=== PATIENT | female | born 1980 | race Caucasian/White ===

== ENCOUNTER 2016-04-20 01:26 | Emergency (ER) | payer OTHER ==
--- NOTE | 2016-04-20 01:52 | PDOC ---
History of Present Illness - General Chief Complaint: Headache Stated Complaint: PAIN,HEADACHE/VOMITING Time Seen by Provider: 04/20/16 01:42 History Source: Patient Exam Limitations: No Limitations - History of Present Illness Timing/Duration: reports: 1-3 hours Associated Symptoms: reports: nausea/vomiting. denies: fever/chills, loss of consciousness, numbness in legs/feet, slurred speech Past History - Travel Traveled outside of the country in the last 30 days: No Close contact w/someone who was outside of country & ill: No - Past Medical History Allergies/Adverse Reactions: Allergies Allergy/AdvReac Type Severity Reaction Status Date / Time sulfamethoxazole Allergy Swelling Verified 04/20/16 01:45 [From Bactrim] tramadol HCl [From Ultram] Allergy Difficulty Verified 04/20/16 01:45 Breathing trimethoprim [From Bactrim] Allergy Swelling Verified 04/20/16 01:45 Home Medications: Ambulatory Orders NK [No Known Home Medication] 01/07/16 Anemia: Yes Asthma: Yes Cancer: Yes (CERVICAL CA) COPD: Yes (sarcoid) Diabetes: No HTN: No - Surgical History Abdominal Surgery: Yes (HYSTERECTOMY, sbo) GI Surgery: Yes (SBO) - Reproductive History Uterine Fibroids: Yes (hysterectomy) Oophorectomy: No - Immunization History Immunization Up to Date: Yes - Psycho/Social/Smoking Cessation Hx Anxiety: No Suicidal Ideation: No Smoking Status: No Smoking History: Never smoked Have you smoked in the past 12 months: No Number of Cigarettes Smoked Daily: 0 Cigars Per Day: 0 Information on smoking cessation initiated: No Hx Alcohol Use: No Drug/Substance Use Hx: No Substance Use Type: None Hx Substance Use Treatment: No Review of Systems - Review of Systems Able to Perform ROS?: Yes Comments:: 04/20/16 01:50 CONSTITUTIONAL: Absent: fever, chills, diaphoresis, generalized weakness, malaise, loss of appetite HEENT: Absent: rhinorrhea, nasal congestion, throat pain, throat swelling, difficulty swallowing, mouth swelling, ear pain, eye pain, visual Changes CARDIOVASCULAR: Absent: chest pain, loss of consciousness, palpitations, irregular heart rate, peripheral edema RESPIRATORY: Absent: cough, shortness of breath, dyspnea with exertion, orthopnea, wheezing, stridor, hemoptysis GASTROINTESTINAL: Absent: abdominal pain, abdominal distension, nausea, vomiting, diarrhea, constipation, melena, hematochezia GENITOURINARY: Absent: dysuria, frequency, urgency, hesitancy, hematuria, flank pain, genital pain MUSCULOSKELETAL: Absent: myalgia, arthralgia, joint swelling SKIN: Absent: rash, itching, pallor HEMATOLOGIC/IMMUNOLOGIC: Absent: easy bleeding, easy bruising, lymphadenopathy, frequent infections ENDOCRINE: Absent: unexplained weight gain, unexplained weight loss, heat intolerance, cold intolerance NEUROLOGIC: +headache Absent: focal weakness or paresthesias, dizziness, unsteady gait, seizure, mental status changes, bladder or bowel incontinence PSYCHIATRIC: Absent: anxiety, depression, suicidal or homicidal ideation, hallucinations. Is the patient limited Macedonian proficient: No *Physical Exam - Vital Signs Last Vital Signs Temp Pulse Resp BP Pulse Ox 98.0 F 89 20 120/89 98 04/20/16 01:45 04/20/16 01:45 04/20/16 01:45 04/20/16 01:45 04/20/16 01:45 - Physical Exam Comments: 04/20/16 01:50 GENERAL: Well developed, well nourished. Awake and alert. No acute distress. HEENT: Normocephalic, atraumatic. PERRLA, EOMI. No conjunctival pallor. Sclera are non- icteric. Moist mucous membranes. Oropharynx is clear. NECK: Supple. Full ROM. No JVD. Carotid pulses 2+ and symmetric, without bruits. No thyromegaly. No lymphadenopathy. CARDIOVASCULAR: Regular rate and rhythm. No murmurs, rubs, or gallops. Distal pulses are 2+ and symmetric. PULMONARY: No evidence of respiratory distress. Lungs clear to auscultation bilaterally. No wheezing, rales or rhonchi. ABDOMINAL: Soft. Non-tender. Non-distended. No rebound or guarding. No organomegaly. Normoactive bowel sounds. MUSCULOSKELETAL Normal range of motion at all joints. No bony deformities or tenderness. No CVA tenderness. EXTREMITIES: No cyanosis. No clubbing. No edema. No calf tenderness. SKIN: Warm and dry. Normal capillary refill. No rashes. No jaundice. NEUROLOGICAL: Alert, awake, appropriate. Cranial nerves 2-12 intact. No deficits to light touch and temperature in face, upper extremities and lower extremities. No motor deficits in the in face, upper extremities and lower extremities. Normoreflexic in the upper and lower extremities. Normal speech. Toes are down- going bilaterally. Gait is normal without ataxia. PSYCHIATRIC: Cooperative. Good eye contact. Appropriate mood and affect. toe/heel/tandem intact ED Treatment Course - LABORATORY CBC & Chemistry Diagram: 04/20/16 02:01 04/20/16 01:59 - RADIOLOGY Radiograph Interpretation: 04/20/16 05:11 Spiral renal; neg Progress Note - Progress Note Progress Note: 35-year-old female presents to the emergency department complaining of a generalized headache with mid back pain 2 days with nausea but no vomiting, left flank pain. Patient denies any dizziness, lightheadedness, neck pains, chest pain, shortness of breath or abdominal discomfort, urinary symptoms: Frequency/urgency/hesitancy, hematuria. *DC/Admit/Observation/Transfer Diagnosis at time of Disposition: Back pain Qualifiers: Back pain location: low back pain Chronicity: unspecified Back pain laterality : left Sciatica presence: without sciatica Qualified Code(s): M54.5 - Low back pain Headache Qualifiers: Headache type: unspecified Headache chronicity pattern: unspecified pattern - Discharge Dispostion Disposition: HOME Condition at time of disposition: Stable Admit: No - Referrals Referrals: Santos Hu [Non Staff, Medical] - Clive Smith MD [Staff Physician] - - Patient Instructions Printed Discharge Instructions: DI for Headache, Low Back Pain Additional Instructions: Rest Increase fluid Tylenol as needed for pain Return to the ER for severe/persistent/worsening symptoms
[2016-04-20 01:53] VITALS: BP 120/89; PULSE 89; TEMP 98; BMI 31.0
--- NOTE | 2016-04-20 01:53 | PDOC ---
*Physical Exam - Vital Signs Last Vital Signs Temp Pulse Resp BP Pulse Ox 98.0 F 89 20 120/89 98 04/20/16 01:45 04/20/16 01:45 04/20/16 01:45 04/20/16 01:45 04/20/16 01:45 ED Treatment Course - LABORATORY CBC & Chemistry Diagram: 04/20/16 02:01 04/20/16 01:59 Medical Decision Making - Medical Decision Making 04/20/16 01:53 agree with care from PIOTR Colvin *DC/Admit/Observation/Transfer Diagnosis at time of Disposition: Back pain, Headache - Discharge Dispostion Disposition: HOME Condition at time of disposition: Stable - Referrals Referrals: Santos Hu [Non Staff, Medical] - Clive Smith MD [Staff Physician] - - Patient Instructions Printed Discharge Instructions: Low Back Pain, DI for Headache Additional Instructions: Rest Increase fluid Tylenol as needed for pain Return to the ER for severe/persistent/worsening symptoms
[2016-04-20] MEDS ORDERED: SODIUM CHLORIDE 1,000 ML IV STA (02:03)
[2016-04-20] MEDS ORDERED: METOCLOPRAMIDE HCL INJECTION 10 MG/2 ML VIAL IVPUSH ONE (02:03)
[2016-04-20] MEDS ORDERED: METOCLOPRAMIDE HCL INJECTION 10 MG/2 ML VIAL ONE (02:29)
[2016-04-20 02:32] LABS: BASOPHIL 0.7 % (0-2.0); EOSINOPHIL 1.4 % (0-4.5); MCH 29.1 pg (25.7-33.7); MEAN CELL VOLUME 85.7 fl (80-96); MEAN PLT VOLUME 8.7 fl (7.5-11.1); NEUTROPHILS 53.3 % (42.8-82.8); PLATELET COUNT 228 K/MM3 (134-434); RDW 13.2 % (11.6-15.6); WHITE BLOOD COUNT 7.7 K/mm3 (4.0-10.0)
[2016-04-20 02:53] LABS: URINE APPEARANCE CLEAR; URINE BILIRUBIN NEGATIVE (NEGATIVE); URINE COLOR LTYELLOW; URINE GLUCOSE (UA) NEGATIVE (NEGATIVE); URINE KETONE NEGATIVE (NEGATIVE); URINE LEUK ESTERASE NEGATIVE (NEGATIVE); URINE NITRITE NEGATIVE (NEGATIVE); URINE PROTEIN NEGATIVE (NEGATIVE); URINE UROBILINOGEN NEGATIVE E.U./dl (0.2-1.0)
[2016-04-20 02:58] LABS: URINE BLOOD 2+ (NEGATIVE)
[2016-04-20 03:17] LABS: URINE BACTERIA RARE /hpf (NONE SEEN); URINE MUCUS RARE; URINE RBC 2 /hpf (0-3); URINE WBC 2 /hpf (3-5)
[2016-04-20 03:39] LABS: ALBUMIN 3.7 g/dl (3.4-5.0); ALK PHOS 87 U/L (45-117); ANION GAP 12 (8-16); BILIRUBIN,TOTAL 0.5 mg/dL (0.2-1.0); CALCIUM 8.9 mg/dL (8.5-10.1); CO2 25 mmol/L (21-32); CREATININE 0.7 mg/dL (0.55-1.02); GLUCOSE,RANDOM 94 mg/dL (74-106); SGOT/AST 28 U/L (15-37); SGPT/ALT 50 U/L (12-78); TOT PROT 6.9 g/dl (6.4-8.2)
== END 2016-04-20 05:36 | disposition home or self-care (01) ==
LOC: JER 01:26
PROC: 3E033GC Introduction of Other Therapeutic Substance into Peripheral Vein, Percutaneous Approach (ICD-10-PCS; principal; 2016-04-20)
DX: R51 Headache (principal)
CPT/HCPCS: 36415; 74176; 80053; 81003; 81015; 84703; 85025; 96374; 96375; 99283-25

== ENCOUNTER 2016-07-02 14:58 | Emergency (ER) | payer OTHER ==
[2016-07-02 15:15] VITALS: BP 118/73; PULSE 84; TEMP 97.9; BMI 29.9
--- NOTE | 2016-07-02 15:36 | PDOC ---
History of Present Illness - General Chief Complaint: Hematuria Stated Complaint: STOMACH PAIN/URINATING BLOOD Time Seen by Provider: 07/02/16 15:29 History Source: Patient Exam Limitations: No Limitations - History of Present Illness Initial Comments: 07/02/16 15:49 Pt. is a 36 y/o female with PMH of hysterectomy, who presents to the ED complaining of lower abdominal pain and urinating blood. Pt. states her pain started late last night and when she woke up this morning, she noticed blood on the toilet paper after wiping. Admits to frequency. Denies fevers, chills, nausea, vomiting, flank pain, and dysuria. Past History - Travel Traveled outside of the country in the last 30 days: No Close contact w/someone who was outside of country & ill: No - Past Medical History Allergies/Adverse Reactions: Allergies Allergy/AdvReac Type Severity Reaction Status Date / Time sulfamethoxazole Allergy Swelling Verified 07/02/16 15:13 [From Bactrim] tramadol HCl [From Ultram] Allergy Difficulty Verified 07/02/16 15:13 Breathing trimethoprim [From Bactrim] Allergy Swelling Verified 07/02/16 15:13 Home Medications: Ambulatory Orders Cephalexin Monohydrate [Keflex -] 500 mg PO BID #13 capsule 07/02/16 Anemia: Yes Asthma: Yes Cancer: Yes (CERVICAL CA) COPD: Yes (sarcoid) Diabetes: No HTN: No - Surgical History Abdominal Surgery: Yes (HYSTERECTOMY, sbo) GI Surgery: Yes (SBO) - Reproductive History Uterine Fibroids: Yes (hysterectomy) Oophorectomy: No - Immunization History Immunization Up to Date: Yes - Psycho/Social/Smoking Cessation Hx Anxiety: No Suicidal Ideation: No Smoking Status: No Smoking History: Never smoked Have you smoked in the past 12 months: No Number of Cigarettes Smoked Daily: 0 Cigars Per Day: 0 Information on smoking cessation initiated: No Hx Alcohol Use: No Drug/Substance Use Hx: No Substance Use Type: None Hx Substance Use Treatment: No Review of Systems - Review of Systems Constitutional: No: Chills, Fever, Weakness ABD/GI: No: Diarrhea, Nausea, Vomiting : Yes: Frequency, Hematuria, Pain. No: Burning, Dysuria, Flank Pain, Incontinence Integumentary: No: Erythema, Rash *Physical Exam - Vital Signs Last Vital Signs Temp Pulse Resp BP Pulse Ox 97.9 F 84 18 118/73 100 07/02/16 15:13 07/02/16 15:13 07/02/16 15:13 07/02/16 15:13 07/02/16 15:13 - Physical Exam General Appearance: Yes: Nourished, Appropriately Dressed. No: Apparent Distress Respiratory/Chest: positive: Lungs Clear, Normal Breath Sounds. negative: Respiratory Distress, Accessory Muscle Use, Rhonchi, Stridor, Wheezing Cardiovascular: positive: Regular Rhythm, Regular Rate, S1, S2 (present ) Gastrointestinal/Abdominal: positive: Normal Bowel Sounds, Tender (Suprapubic tenderness), Flat, Soft, Other ((-) rovsings, obturator and psoas sign.). negative: Organomegaly, Guarding, Rebound Medical Decision Making - Medical Decision Making 07/02/16 15:37 Pt. presents with UTI symptoms. Pylonephritis less likely as pt. is afebrile with no flank pain. Will order UA, , and UC testing at this time. Will give Tylenol for pain. 07/02/16 16:32 Urine is positive for leukocytes, blood and WBC's. Will treat at this time with Keflex. First dose of keflex given in the ED. Discharge pt. home at this time. Pt. given return protocol for back pain, or new fevers. Pt. understands discharge instructions and all questions were answered at this time. *DC/Admit/Observation/Transfer Diagnosis at time of Disposition: UTI (urinary tract infection) Qualifiers: Urinary tract infection type: acute cystitis Hematuria presence: with hematuria Qualified Code(s): N30.01 - Acute cystitis with hematuria - Discharge Dispostion Admit: No - Prescriptions Prescriptions: Cephalexin Monohydrate [Keflex -] 500 mg PO BID #13 capsule - Patient Instructions Printed Discharge Instructions: DI for Urinary Tract Infection (UTI) Additional Instructions: You have a urinary tract infection. Take your antibiotics as prescribed. Take all of the pills prescribed even if you are feeling better. Drink 8-10 glasses of water daily while taking the antibiotics. It is normal to have to use the restroom more frequently because of the infection. Follow up with you primary care doctor in one week. Return to the ED if you have fevers, chills, new back pain, if your symptoms do not resolve within one week, or if there are any changes in your symptoms.
[2016-07-02 15:57] LABS: URINE APPEARANCE SLCLOUDY; URINE BILIRUBIN NEGATIVE (NEGATIVE); URINE BLOOD 3+ (NEGATIVE); URINE COLOR LTYELLOW; URINE GLUCOSE (UA) NEGATIVE (NEGATIVE); URINE KETONE NEGATIVE (NEGATIVE); URINE LEUK ESTERASE 3+ (NEGATIVE); URINE NITRITE NEGATIVE (NEGATIVE); URINE PROTEIN NEGATIVE (NEGATIVE); URINE UROBILINOGEN NEGATIVE E.U./dl (0.2-1.0)
[2016-07-02 16:03] LABS: URINE BACTERIA MODERATE /hpf (NONE SEEN); URINE MUCUS RARE; URINE RBC 3 /hpf (0-3); URINE WBC 147 /hpf (3-5)
[2016-07-02] MEDS ORDERED: ACETAMINOPHEN 325 MG TABLET (FP) PO ONE (16:17)
[2016-07-02] MEDS ORDERED: ACETAMINOPHEN 325 MG TABLET (FP) ONE (16:20)
[2016-07-02] MEDS ORDERED: CEPHALEXIN MONOHYDRATE 500 MG CAPSULE (UD) PO ONE (16:26)
[2016-07-02] MEDS ORDERED: CEPHALEXIN MONOHYDRATE 500 MG CAPSULE (UD) ONE (16:29)
== END 2016-07-02 16:59 | disposition home or self-care (01) ==
LOC: JERFT 14:58
DX: N30.01 Acute cystitis with hematuria (principal)
CPT/HCPCS: 81003; 81015; 84703; 87086; 87186; 99281-25

== ENCOUNTER 2017-06-06 01:55 | Emergency (ER) | payer OTHER ==
[2017-06-06 02:20] VITALS: BP 113/78; PULSE 73; TEMP 98.1
--- NOTE | 2017-06-06 02:35 | PDOC ---
Attending Attestation - Resident Resident Name: Dorcas Lindsay - ED Attending Attestation I have performed the following: I have examined & evaluated the patient, The case was reviewed & discussed with the resident, I agree w/resident's findings & plan, Exceptions are as noted - HPI HPI: 06/06/17 02:38 37y F hx of sarcoid (no chronic meds), cervical ca, asthma, presents with complaint of palpitations during a 'panic attack' started feelig palpitations when she was in bed associated with chest tightness, nausea, lightheadedness, sob, lasting approx 20 minutes. She called EMS and while still symptmoatic with normal vitals, she was originally sent to [facility] but eloped and came here. pt sates she if eeling better here and is asypmtmoatic. No prior thyroid history. GENERAL: The patient is awake, alert, and fully oriented, Nontoxic - in no acute distress. HEAD: Normocephalic, atraumatic. EYES: extraocular movements intact, sclera anicteric, conjunctiva clear. ENT: Normal voice, Moist mucous membranes. NECK: Normal range of motion, supple LUNGS: Breath sounds equal, clear to auscultation bilaterally. No wheezes, no rhonchi, no rales. HEART: Regular rate and rhythm, normal S1 and S2 without murmur, rub or gallop. ABDOMEN: Soft, nontender, normoactive bowel sounds. No guarding, no rebound. No CVA tenderness EXTREMITIES: Normal range of motion, no edema. No calf tenderness NEUROLOGICAL: No facial assymetry, Normal speech, PSYCH: Normal mood, normal affect. SKIN: Warm, Dry, normal turgor, suspect anxiety/panic attack that resolved ekg is NSR with RBBB will ck labs to r/o anemia, metabolic derangements, thyroid dysfunction 06/06/17 03:48 labs unremarkbl ept feeling improved at vt will have pt fu with pMD and psych (Was given referral by PMD at [facility]) I discussed the physical exam findings, ancillary test results and final diagnoses with the patient. I answered all of the patient's questions. The patient was satisfied with the care received and felt comfortable with the discharge plan and treatment plan. The patient will call their primary care physician within 24 hours to arrange follow-up and will return to the Emergency Department with any new, persistent or worsening symptoms. - Physicial Exam PE: 06/08/17 17:13 see above - Medical Decision Making 06/08/17 17:13 see above Heart Score/ECG Review - ECG Impressions Comment:: 06/06/17 02:34 Twelve-lead EKG was performed and reviewed by me. There is normal sinus rhythm with a normal rate. rate of 67 RBBB
--- NOTE | 2017-06-06 02:35 | PDOC ---
History of Present Illness - General Chief Complaint: Palpitations Stated Complaint: PALPATATIONS Time Seen by Provider: 06/06/17 02:18 - History of Present Illness Initial Comments: 06/06/17 02:31 Patient is a 37 year old female with PMH of cervical cancer (s/p hysterectomy in 2009), sarcoidosis, asthma (no hospitalizations, no intubations) presents to the ED this morning following an episode of palpitations during a self- described panic attack. Patient notes she was laying in bed at approximately 10 p.m. when she felt her heart beating rapidly and the need to be outdoors. Patient ran outside and patient's partner called 911. Endorses subjective dyspnea denies any chest pain, nausea, diaphoresis. Notes life stressors including recent of her mother and her's partner's father. Further notes h/o of poor sleep. States she has a h/o similar presentations over the last year, however no formal medical evaluation. Allergy: Bactrim, Tramadol Surgical: hysterectomy (2009) Social: denies nicotine, denies recreational drugs Past History - Past Medical History Allergies/Adverse Reactions: Allergies Allergy/AdvReac Type Severity Reaction Status Date / Time sulfamethoxazole Allergy Swelling Verified 06/06/17 04:45 [From Bactrim] tramadol HCl [From Ultram] Allergy Difficulty Verified 06/06/17 04:45 Breathing trimethoprim [From Bactrim] Allergy Swelling Verified 06/06/17 04:45 Home Medications: Ambulatory Orders Alprazolam [Xanax] 0.25 mg PO Q12H PRN #4 tablet MDD 2 06/06/17 Anemia: Yes Asthma: Yes Cancer: Yes (CERVICAL CA) COPD: Yes (sarcoid) Diabetes: No HTN: No - Surgical History Abdominal Surgery: Yes (HYSTERECTOMY, sbo) GI Surgery: Yes (SBO) - Reproductive History Uterine Fibroids: Yes (hysterectomy) Oophorectomy: No - Immunization History Immunization Up to Date: Yes - Suicide/Smoking/Psychosocial Hx Smoking Status: No Smoking History: Never smoked Have you smoked in the past 12 months: No Number of Cigarettes Smoked Daily: 0 Cigars Per Day: 0 Information on smoking cessation initiated: No Hx Alcohol Use: No Drug/Substance Use Hx: No Substance Use Type: None Hx Substance Use Treatment: No Review of Systems - Review of Systems Constitutional: No: Chills, Fever HEENTM: No: Recent change in vision Respiratory: Yes: Shortness of Breath. No: Cough Cardiac (ROS): Yes: Palpitations. No: Chest Pain, Lightheadedness, Syncope ABD/GI: No: Constipated, Diarrhea, Nausea, Vomiting : No: Burning, Dysuria *Physical Exam - Vital Signs Last Vital Signs Temp Pulse Resp BP Pulse Ox 98.1 F 73 20 113/78 100 06/06/17 02:18 06/06/17 02:18 06/06/17 02:18 06/06/17 02:18 06/06/17 02:18 - Physical Exam General Appearance: Yes: Nourished, Appropriately Dressed HEENT: positive: EOMI Neck: positive: Trachea midline, Supple Respiratory/Chest: positive: Lungs Clear Cardiovascular: positive: Regular Rate, S1, S2 Gastrointestinal/Abdominal: positive: Normal Bowel Sounds, Soft Musculoskeletal: negative: CVA Tenderness (R), CVA Tenderness (L) Extremity: positive: Normal Capillary Refill, Normal Inspection Integumentary: positive: Normal Color, Dry, Warm ED Treatment Course - LABORATORY CBC & Chemistry Diagram: 06/06/17 02:50 06/06/17 02:50 Medical Decision Making - Medical Decision Making 06/06/17 02:58 37 year old female presents with resolved palpitations. VS unremarkable, asymptomatic @ presentation. Frontal diagnosis: Anemia, Electrolyte Derangement , (less likely), Panic Attack. Will obtain basic labs + serum . Reassess. 06/06/17 03:00 ECG shows RBB, HR 92 c/w ECG dated 07/09/14. negative. 06/06/17 03:41 TSH normal, no anemia, no electrolyte derangements. At this time patient completely asymptomatic. Will give copy of labs, return precaution and discharge home with counseling to keep previously scheduled PMD follow-up. I discussed the physical exam findings, ancillary test results and final diagnoses with the patient. I answered all of the patient's questions. The patient was satisfied with the care received and felt comfortable with the discharge plan and treatment plan. The patient will return to the Emergency Department with any new, persistent or worsening symptoms. *DC/Admit/Observation/Transfer Diagnosis at time of Disposition: Palpitations - Discharge Dispostion Disposition: HOME Condition at time of disposition: Good Admit: No - Referrals - Patient Instructions Printed Discharge Instructions: Anxiety and Panic Attacks (Alternative Therapy) , DI for Anxiety -- Adult Additional Instructions: A copy of your labs has been provided to you. Please take these to your primary care appointment. Return to the Emergency Department for any new/ worsening/concerning symptoms. - Post Discharge Activity
[2017-06-06 02:59] LABS: BASO % 0.7 % (0-2.0); EOS % 4.3 % (0-4.5); HEMOGLOBIN 12.5 GM/dL (10.7-15.3); LYMPH % 30.6 % (8-40); MCH 30.2 pg (25.7-33.7); MCHC 34.7 g/dl (32.0-36.0); MEAN PLT VOLUME 8.7 fl (7.5-11.1); MONO % 9.4 % (3.8-10.2); PLATELET COUNT 249 K/MM3 (134-434); RBC 4.14 M/mm3 (3.60-5.2); RDW 12.9 % (11.6-15.6); WHITE BLOOD COUNT 7.9 K/mm3 (4.0-10.0)
[2017-06-06 03:25] LABS: ALBUMIN 3.4 g/dl (3.4-5.0); ALK PHOS 82 U/L (45-117); ANION GAP 9 (8-16); BILIRUBIN,TOTAL 0.3 mg/dL (0.2-1.0); BLOOD UREA NITROGEN 13 mg/dL (7-18); CALCIUM 8.7 mg/dL (8.5-10.1); CHLORIDE 109 mmol/L (98-107); CO2 25 mmol/L (21-32); CREATININE 0.6 mg/dL (0.55-1.02); GLUCOSE,RANDOM 98 mg/dL (74-106); POTASSIUM 3.5 mmol/L (3.5-5.1); SGOT/AST 16 U/L (15-37); SGPT/ALT 26 U/L (12-78); SODIUM 143 mmol/L (136-145); TOT PROT 6.5 g/dl (6.4-8.2)
--- NOTE | 2017-06-09 10:00 | EKG ---
Test Reason : Blood Pressure : / mmHG Vent. Rate : 067 BPM Atrial Rate : 067 BPM P-R Int : 150 ms QRS Dur : 140 ms QT Int : 438 ms P-R-T Axes : 060 042 018 degrees QTc Int : 462 ms NORMAL SINUS RHYTHM RIGHT BUNDLE BRANCH BLOCK ABNORMAL ECG WHEN COMPARED WITH ECG OF 09-JUL-2014 15:52, NO SIGNIFICANT CHANGE WAS FOUND Confirmed by EDIL JOHN MD ([id number]) on 06/09/2017 10:00:13 AM Referred By: Confirmed By:EDIL JOHN MD
== END 2017-06-06 03:52 | disposition home or self-care (01) ==
LOC: JER 01:55
DX: R00.2 Palpitations (principal)
CPT/HCPCS: 36415; 80053; 84443; 84703; 85025; 93005; 93010; 99281-25; 99283-25

== ENCOUNTER 2017-06-06 04:13 | Emergency (ER) | payer OTHER ==
[2017-06-06] MEDS ORDERED: ALPRAZolam 0.25 MG TABLET PO ONE (04:23)
--- NOTE | 2017-06-06 04:23 | PDOC ---
History of Present Illness - General Stated Complaint: ANXIETY ATTACK Time Seen by Provider: 06/06/17 04:19 History Source: Patient Exam Limitations: No Limitations - History of Present Illness Initial Comments: 06/06/17 04:29 37y F discharged ~10 minutes ago for evaluation of palpitations and suspected panic attack, was feeling fine at discharge but in the cab started feeling sob, lighhteaded and palpitations. no associted cp, abd pain, n/v (see earlier chart for complete visit details) Past History - Past Medical History Allergies/Adverse Reactions: Allergies Allergy/AdvReac Type Severity Reaction Status Date / Time sulfamethoxazole Allergy Swelling Verified 06/06/17 04:45 [From Bactrim] tramadol HCl [From Ultram] Allergy Difficulty Verified 06/06/17 04:45 Breathing trimethoprim [From Bactrim] Allergy Swelling Verified 06/06/17 04:45 Home Medications: Ambulatory Orders Alprazolam [Xanax] 0.25 mg PO Q12H PRN #4 tablet MDD 2 06/06/17 Anemia: Yes Asthma: Yes Cancer: Yes (CERVICAL CA) COPD: Yes (sarcoid) Diabetes: No HTN: No - Surgical History Abdominal Surgery: Yes (HYSTERECTOMY, sbo) GI Surgery: Yes (SBO) - Reproductive History Uterine Fibroids: Yes (hysterectomy) Oophorectomy: No - Immunization History Immunization Up to Date: Yes - Suicide/Smoking/Psychosocial Hx Smoking Status: No Smoking History: Never smoked Have you smoked in the past 12 months: No Number of Cigarettes Smoked Daily: 0 Cigars Per Day: 0 Hx Alcohol Use: No Drug/Substance Use Hx: No Substance Use Type: None Hx Substance Use Treatment: No Review of Systems - Review of Systems Comments:: 06/06/17 04:36 see above *Physical Exam - Physical Exam Comments: 06/06/17 04:36 GENERAL: The patient is awake, alert, and oriented, anxious appearing HEAD: Normocephalic, atraumatic. LUNGS: Breath sounds equal, clear to auscultation bilaterally. No wheezes, no rhonchi, no rales. HEART: Regular rate and rhythm, normal S1 and S2 without murmur, rub or gallop. NEUROLOGICAL: No facial assymetry, Normal speech, PSYCH: anxious appearing SKIN: Warm, Dry, normal turgor, Medical Decision Making - Medical Decision Making 06/06/17 04:37 pt had neg workup an hr ago suspect anxiety attack on the way home will give her some xanax and reassess 06/06/17 06:27 pt feeling imroved full resolution of her symptoms will dc with pmd fu return precautions were dsicussed pt was given psych fu by her PMD she will give psych a call for follow up I discussed the physical exam findings, ancillary test results and final diagnoses with the patient. I answered all of the patient's questions. The patient was satisfied with the care received and felt comfortable with the discharge plan and treatment plan. The patient will call their primary care physician within 24 hours to arrange follow-up and will return to the Emergency Department with any new, persistent or worsening symptoms. *DC/Admit/Observation/Transfer Diagnosis at time of Disposition: Anxiety attack - Discharge Dispostion Disposition: HOME Condition at time of disposition: Improved Admit: No - Referrals Referrals: Wil Brown MD [Staff Physician] - - Patient Instructions Printed Discharge Instructions: DI for Anxiety -- Adult Additional Instructions: Return to the emergency department immediately with ANY new, persistent or worsening symptoms. You MUST call and follow up with your doctor and a psychiatrist this week for further evaluation of your symptoms. Results were discussed with you. Please make sure your doctor reviews the results of your emergency evaluation. - Post Discharge Activity
[2017-06-06 04:47] VITALS: BP 118/84; PULSE 68; TEMP 98.3; BMI 29.9
[2017-06-06] MEDS ORDERED: ALPRAZolam 0.25 MG TABLET ONE (04:50)
== END 2017-06-06 06:45 | disposition home or self-care (01) ==
LOC: JER 04:13
DX: F41.0 Panic disorder [episodic paroxysmal anxiety] (principal); F41.9 Anxiety disorder, unspecified; J45.909 Unspecified asthma, uncomplicated; J44.9 Chronic obstructive pulmonary disease, unspecified; Z86.2 Personal history of diseases of the blood and blood-forming organs and certain disorders involving the immune mechanism
CPT/HCPCS: 99283-25

== ENCOUNTER 2018-03-22 12:17 | Emergency (ER) | payer OTHER ==
[2018-03-22 12:24] VITALS: BP 111/72; PULSE 90; TEMP 98.2; BMI 28.3
--- NOTE | 2018-03-22 13:53 | PDOC ---
History of Present Illness - General Chief Complaint: Bite Stated Complaint: ALLERGIC REACTION Time Seen by Provider: 03/22/18 13:19 History Source: Patient - History of Present Illness Initial Comments: 03/22/18 13:48 37-year-old female reports that she was bit by an insect last night to the left elbow and forearm area and right middle finger. Patient reports increased redness and swelling to the left elbow and reports pruritus. Denies fevers/ chills Past History - Past Medical History Allergies/Adverse Reactions: Allergies Allergy/AdvReac Type Severity Reaction Status Date / Time sulfamethoxazole Allergy Swelling Verified 03/22/18 12:21 [From Bactrim] tramadol HCl [From Ultram] Allergy Difficulty Verified 03/22/18 12:21 Breathing trimethoprim [From Bactrim] Allergy Swelling Verified 03/22/18 12:21 Home Medications: Ambulatory Orders Alprazolam [Xanax] 0.25 mg PO Q12H #4 tablet MDD 2 06/06/17 Acyclovir [Zovirax -] 800 mg PO DAILY #35 tablet 02/03/18 Clindamycin [Cleocin -] 150 mg PO Q6H #28 capsule 03/22/18 Anemia: Yes Asthma: Yes Cancer: Yes (CERVICAL CA) COPD: Yes (sarcoid) Diabetes: No HTN: No - Surgical History Abdominal Surgery: Yes (HYSTERECTOMY, sbo) GI Surgery: Yes (SBO) - Reproductive History Uterine Fibroids: Yes (hysterectomy) Oophorectomy: No - Immunization History Immunization Up to Date: Yes - Suicide/Smoking/Psychosocial Hx Smoking Status: No Smoking History: Never smoked Have you smoked in the past 12 months: No Number of Cigarettes Smoked Daily: 0 Cigars Per Day: 0 Information on smoking cessation initiated: No Hx Alcohol Use: No Drug/Substance Use Hx: No Substance Use Type: None Hx Substance Use Treatment: No Review of Systems - Review of Systems Able to Perform ROS?: Yes Is the patient limited Maori proficient: No Constitutional: No: Symptoms Reported, See HPI, Chills, Diaphoresis, Fever, Loss of Appetite, Malaise, Night Sweats, Weakness, Weight Stable, Unintentional Wgt. Loss, Unexplained wgt Loss, Other Integumentary: Yes: Other (bite). No: Symptoms Reported, See HPI, Bruising, Change in Color, Change in Hair/Nails, Dryness, Erythema, Flushing, Lesions, Lumps, Pallor, Pruritus, Rash, Sweating *Physical Exam - Vital Signs Last Vital Signs Temp Pulse Resp BP Pulse Ox 98.2 F 90 16 111/72 100 03/22/18 12:22 03/22/18 12:22 03/22/18 12:22 03/22/18 12:22 03/22/18 12:22 - Physical Exam General Appearance: Yes: Appropriately Dressed Respiratory/Chest: positive: Lungs Clear, Normal Breath Sounds Extremity: positive: Normal Capillary Refill, Erythema (left forearm / elbow. no streaking. right 3 rd digit with erythema), Inflammation (no streaking), Other Integumentary: positive: Normal Color, Dry, Warm Neurologic: positive: Fully Oriented, Alert, Normal Mood/Affect Moderate Sedation - Procedure Monitoring Vital Signs: Procedure Monitoring Vital Signs Temperature 98.2 F 03/22/18 12:22 Pulse Rate 90 03/22/18 12:22 Respiratory Rate 16 03/22/18 12:22 Blood Pressure 111/72 03/22/18 12:22 O2 Sat by Pulse Oximetry (%) 100 03/22/18 12:22 Progress Note - Progress Note Progress Note: A: insect bite with early cellulitis P: clindamycin. 2 days return to PCP or er for a wound check. *DC/Admit/Observation/Transfer Diagnosis at time of Disposition: Cellulitis of forearm, left - Discharge Dispostion Disposition: HOME - Prescriptions Prescriptions: Clindamycin [Cleocin -] 150 mg PO Q6H #28 capsule - Referrals - Patient Instructions Printed Discharge Instructions: How to Care for an Insect Bite or Sting Additional Instructions: apply warm to the area take clindamycin as ordered follow up with your doctor in 2 days for a wound check. Additional Instructions: * Please call your personal physician to report your Emergency Department visit and to report your progress, if any. * If there is no improvement in symptoms in 2 days call your physician. * Return to the Emergency Department for any worsening symptoms. - Post Discharge Activity
== END 2018-03-22 14:02 | disposition home or self-care (01) ==
LOC: JERFT 12:17
DX: S50.862A Insect bite (nonvenomous) of left forearm, initial encounter (principal); L03.114 Cellulitis of left upper limb; W57.XXXA Bitten or stung by nonvenomous insect and other nonvenomous arthropods, initial encounter; Y93.89 Activity, other specified; Y92.89 Other specified places as the place of occurrence of the external cause; Y99.8 Other external cause status
CPT/HCPCS: 99281-25

== ENCOUNTER 2018-07-12 09:04 | Emergency (ER) | payer OTHER | END 2018-07-12 12:09 | disposition home or self-care (01) | LOC: JERFT 09:04 ==

== ENCOUNTER 2018-10-15 17:40 | Emergency (ER) | payer OTHER ==
[2018-10-15] MEDS ORDERED: ASPIRIN 81 MG CHEWABLE TABLETS PO ONE ×2 (18:04→22:51)
--- NOTE | 2018-10-15 18:05 | PDOC ---
Rapid Medical Evaluation Chief Complaint: Chest Pain Time Seen by Provider: 10/15/18 18:03 Medical Evaluation: Allergies Allergy/AdvReac Type Severity Reaction Status Date / Time sulfamethoxazole Allergy Swelling Verified 10/15/18 18:03 [From Bactrim] tramadol HCl [From Ultram] Allergy Difficulty Verified 10/15/18 18:03 Breathing trimethoprim [From Bactrim] Allergy Swelling Verified 10/15/18 18:03 10/15/18 18:03 HPI:Chest tightness and light headedness since yesterday PE: No gross deficits ORDERS:Cardiac work up Discharge Disposition - Diagnosis Chest tightness - Referrals - Patient Instructions - Post Discharge Activity
[2018-10-15 18:06] VITALS: TEMP 98.5; BMI 28.5
--- NOTE | 2018-10-15 18:40 | PDOC ---
History of Present Illness - General Chief Complaint: Chest Pain Stated Complaint: CHEST PAIN Time Seen by Provider: 10/15/18 18:03 - History of Present Illness Initial Comments: 10/15/18 19:48 38 y/o/f with PMHx of Sarcoidosis and anxiety here for chest pain/tightness since last night. She took 0.25mg of Xanax last night thinking the chest pain was due to her anxiety but it did not improve. She describes the pain as pressure on her chest. She had difficulty sleeping and still had chest tightness when she woke up. She also complains of intermittent pain that radiates to her left arm and up her neck. She also complains of weakness in her left side since she woke up this morning. She also complains that the vision in her left eye is intermittently blurry. She has felt nauseous today but did not vomit or have diarrhea today. She has not had any palpitations, sweating, shortness of breath, abd pain, fever, or other symptoms. Medical Hx: sarcoidosis diagnosed in 2010, anxiety Medications: Buspar 10mg BID, Xanax 0.25mg PRN, Prednisone - only during sarcoid flare Surgery: Left Knee surgery 2018, Hysterectomy 2009 Past History - Past Medical History Allergies/Adverse Reactions: Allergies Allergy/AdvReac Type Severity Reaction Status Date / Time sulfamethoxazole Allergy Swelling Verified 10/15/18 18:03 [From Bactrim] tramadol HCl [From Ultram] Allergy Difficulty Verified 10/15/18 18:03 Breathing trimethoprim [From Bactrim] Allergy Swelling Verified 10/15/18 18:03 Home Medications: Ambulatory Orders Buspirone HCl [Buspar -] 10 mg PO BID 07/12/18 Nitrofurantoin Monohyd/M-Cryst [Macrobid -] 100 mg PO BID #14 capsule 07/12/18 Valacyclovir HCl [Valtrex] 1,000 mg PO DAILY 5 Days #5 tablet 07/12/18 Anemia: Yes Asthma: Yes Cancer: Yes (CERVICAL CA) COPD: Yes (sarcoid) Diabetes: No HTN: No - Surgical History Abdominal Surgery: Yes (HYSTERECTOMY, sbo) GI Surgery: Yes (SBO) - Reproductive History Uterine Fibroids: Yes (hysterectomy) Oophorectomy: No - Immunization History Immunization Up to Date: Yes - Suicide/Smoking/Psychosocial Hx Smoking Status: No Smoking History: Never smoked Have you smoked in the past 12 months: No Number of Cigarettes Smoked Daily: 0 Cigars Per Day: 0 Hx Alcohol Use: No Drug/Substance Use Hx: No Substance Use Type: None Hx Substance Use Treatment: No Review of Systems - Review of Systems Able to Perform ROS?: Yes Constitutional: Yes: Weakness. No: Diaphoresis HEENTM: Yes: Blurred Vision Respiratory: Yes: Cough. No: Shortness of Breath Cardiac (ROS): Yes: Chest Pain, Lightheadedness, Chest Tightness ABD/GI: No: Constipated, Diarrhea, Nausea, Vomiting : No: Dysuria Musculoskeletal: No: Back Pain Integumentary: No: Rash Neurological: Yes: Numbness. No: Headache Psychiatric: No: Anxiety *Physical Exam - Vital Signs Last Vital Signs Temp Pulse Resp BP Pulse Ox 98.5 F 76 18 136/84 100 10/15/18 18:03 10/15/18 18:03 10/15/18 18:03 10/15/18 18:03 10/15/18 18:03 - Physical Exam General Appearance: Yes: Nourished HEENT: positive: EOMI Neck: positive: Supple Respiratory/Chest: positive: Lungs Clear, Normal Breath Sounds. negative: Crackles, Rales, Rhonchi, Stridor Cardiovascular: positive: Regular Rhythm, Regular Rate, S1, S2. negative: JVD Gastrointestinal/Abdominal: positive: Normal Bowel Sounds. negative: Tender, Guarding Extremity: positive: Normal Capillary Refill Integumentary: positive: Normal Color Neurologic: positive: regeneration operator II-XII NML intact, Fully Oriented, Alert, Normal Mood/ Affect, Motor Strength 5/5, Finger to Nose, Other (decreased sensation on left arm, left leg, and left cheek ) Heart Score/ECG Review #1 General ECG Interpretation: Sinus Rhythm ED Treatment Course - LABORATORY CBC & Chemistry Diagram: 10/15/18 19:40 10/15/18 19:40 Medical Decision Making - Medical Decision Making 10/15/18 19:58 38 y/o/f with PMHx of Sarcoidosis and anxiety here for chest pain/tightness since last night. She also complains of weakness in her left side since she woke up last night. Cardiac workup ordered by RME. CT head scan ordered to rule out brain bleed. Patient complaining of weakness since she woke up this morning. Code johnson not called as patient is outside [facility] window. 10/15/18 20:14 EKG reviewed. Normal sinus rhythm. Right bundle branch block present on EKG from 06/06/17. No acute ischemic changes. 10/15/18 21:38 CBC normal. CMP grossly normal. Trops negative. No obvious acute intracranial pathology noted on CT scan, waiting on radiology read. Patient states she is feeling a little better. 10/15/18 22:[address] read negative for acute pathology. Repeating trop. Will discharge if repeat trop is negative. *DC/Admit/Observation/Transfer Diagnosis at time of Disposition: Chest tightness - Discharge Dispostion Disposition: HOME Condition at time of disposition: Good Decision to Admit order: No - Referrals - Patient Instructions Printed Discharge Instructions: DI for Chest Pain Additional Instructions: If you have worsening symptoms such as difficulty breathing, palpitations, worsening pain, lightheadedness or other concerns return to the ER. Follow up with your primary care doctor in the next few days. - Post Discharge Activity
[2018-10-15] MEDS ORDERED: ASPIRIN 81 MG CHEWABLE TABLETS ONE (19:29)
[2018-10-15 19:52] LABS: EOS % 1.6 % (0-4.5); HEMATOCRIT 41.8 % (32.4-45.2); HEMOGLOBIN 13.9 GM/dL (10.7-15.3); LYMPH % 27.5 % (8-40); MCH 29.3 pg (25.7-33.7); MCHC 33.2 g/dl (32.0-36.0); MEAN CELL VOLUME 88.3 fl (80-96); MEAN PLT VOLUME 8.5 fl (7.5-11.1); MONO % 6.2 % (3.8-10.2); NEUT % 63.7 % (42.8-82.8); PLATELET COUNT 280 K/MM3 (134-434); RBC 4.73 M/mm3 (3.60-5.2); RDW 12.8 % (11.6-15.6)
[2018-10-15 20:25] LABS: ALK PHOS 79 U/L (45-117); ANION GAP 6 MMOL/L (8-16); BILIRUBIN,TOTAL 0.4 mg/dL (0.2-1); BLOOD UREA NITROGEN 8.4 mg/dL (7-18); CALCIUM 9.4 mg/dL (8.5-10.1); CHLORIDE 107 mmol/L (98-107); CO2 28 mmol/L (21-32); CREATININE 0.7 mg/dL (0.55-1.3); GLUCOSE,RANDOM 81 mg/dL (74-106); POTASSIUM 4.4 mmol/L (3.5-5.1); SGOT/AST 14 U/L (15-37); SGPT/ALT 23 U/L (13-61); SODIUM 141 mmol/L (136-145); TOT PROT 7.4 g/dl (6.4-8.2)
[2018-10-15 21:40] LABS: INR 1.04 (0.83-1.09); PROTHROMBIN TIME (PATIENT) 12.3 SEC (9.7-13.0)
--- NOTE | 2018-10-15 21:45 | PDOC ---
Documentation entered by Emmy Blas SCRIBE, acting as scribe for Ellie Sullivan MD. Ellie Sullivan MD: This documentation has been prepared by the Roopa payton Brenda, SCRIBE, under my direction and personally reviewed by me in its entirety. I confirm that the documentation accurately reflects all work, treatment, procedures, and medical decision making performed by me. Attending Attestation - Resident Resident Name: ClaudetteJimboronnykey Audra - ED Attending Attestation I have performed the following: I have examined & evaluated the patient, The case was reviewed & discussed with the resident, I agree w/resident's findings & plan, Exceptions are as noted - HPI HPI: 10/15/18 20:25 The patient is a 38 year old female, with a significant PMH of Sarcoidosis and anxiety who presents to the emergency department with 1 day of chest pain/ tightness, which she describes as pressure along with difficulty breathing. Patient reports taking .25 of xanax last night, believing it was due to her anxiety, to no avail. Patient also endorses intermittent pain that radiates to her left arm, and up her neck, and complains of left-sided weakness since waking up this morning. Patient also notes intermittent blurriness in left eye and nausea. The patient denies headache and dizziness. Denies fever, chills, vomiting, diarrhea and constipation. Denies dysuria, frequency, urgency and hematuria. Allergies: sulfamethoxazole, tramadol HCl, trimethoprim Past surgical history: Left Knee surgery 2018, Hysterectomy 2010 Social history: No reported - Physicial Exam PE: 10/15/18 21:43 well-nourished well-developed 38-year-old female with complaint of chest tightness and pain since last evening. Head normocephalic/atraumatic. Eyes pupils reactive to light and accommodation. Extraocular muscles intact. Neck is supple, no JVD, no bruits. Lungs are clear to auscultation bilaterally CVS regular rate and rhythm S1, S2 no gallops or rubs or murmurs. Abdomen is soft, nontender. Skin is warm and dry. Extremities no deformities. Neuro alert and oriented 3, motor strength 5 out of 5 in both upper and lower extremities. No drift, no facial droop, no slurred speech, no limb ataxia, sensation is intact bilaterally, no field cuts, no diplopia - Medical Decision Making 10/15/18 21:45 cxr no acute chest pathology, lungs are clear, normal mediastinum ekg is normal sinus rhythm at 72 bpm with a right bundle branch block troponin it is negative CBC is unremarkable. Chemistries are within normal limits NIHSS is 0 with no focal neuro deficits 10/16/18 00:23 2rd trop was negative The head was negative for any acute intracranial pathology 10/16/18 00:43 pt discharged home to followup with her PCP imp chest pain
[2018-10-15] MEDS ORDERED: ASPIRIN 325 MG ENTERIC COATED TABLET (FP) PO ONE (21:46)
[2018-10-15] MEDS ORDERED: ASPIRIN COATED 81 MG TABLET.EC ONE (22:17)
[2018-10-15] MEDS ORDERED: ASPIRIN COATED 81 MG TABLET.EC PO SCH (22:20)
[2018-10-16 00:34] VITALS: BP 108/68; PULSE 72
[2018-10-16] MEDS ORDERED: ASPIRIN COATED 81 MG TABLET.EC PO SCH (10:00)
--- NOTE | 2018-10-16 12:44 | EKG ---
Test Reason : Blood Pressure : / mmHG Vent. Rate : 072 BPM Atrial Rate : 072 BPM P-R Int : 148 ms QRS Dur : 134 ms QT Int : 420 ms P-R-T Axes : 063 062 026 degrees QTc Int : 459 ms NORMAL SINUS RHYTHM RIGHT BUNDLE BRANCH BLOCK ABNORMAL ECG WHEN COMPARED WITH ECG OF 06-JUN-2017 01:59, NO SIGNIFICANT CHANGE WAS FOUND Confirmed by Bahman Guzman MD ([id number]) on 10/16/2018 12:44:12 PM Referred By: Confirmed By:Bahman Guzman MD
== END 2018-10-16 00:35 | disposition home or self-care (01) ==
LOC: JER 17:40
DX: R07.89 Other chest pain (principal); F41.9 Anxiety disorder, unspecified; D86.9 Sarcoidosis, unspecified; Z87.09 Personal history of other diseases of the respiratory system
CPT/HCPCS: 36415; 70450-TC; 71046-TC-FY; 80053; 82550; 83735; 84484; 85025; 85610; 93005; 93010; 99282-25

== ENCOUNTER 2019-01-30 09:36 | Emergency (ER) | payer OTHER ==
[2019-01-30 09:48] VITALS: PULSE 71; TEMP 98.5; BMI 28.3
[2019-01-30] MEDS ORDERED: FAMOTIDINE 20 MG/50 ML IVPB 20 MG/50 ML MG IVPB ONE ×2 (10:11→10:25)
[2019-01-30] MEDS ORDERED: ACETAMINOPHEN 1000 MG/100 ML VIAL (NON FORMULARY) IVPB ONE (10:11)
[2019-01-30] MEDS ORDERED: MAG HYDROX/AL HYDROX/SIMETH 30 ML UNIT-DOSE CUP PO ONE (10:11)
[2019-01-30] MEDS ORDERED: ONDANSETRON 4 MG/2 ML VIAL IVPB ONE (10:11)
[2019-01-30] MEDS ORDERED: ONDANSETRON 4 MG/2 ML VIAL ONE (10:25)
[2019-01-30] MEDS ORDERED: ACETAMINOPHEN INJECTION 100 ML IVPB ONE (10:25)
[2019-01-30] MEDS ORDERED: MAG HYDROX/AL HYDROX/SIMETH 30 ML UNIT-DOSE CUP ONE (10:25)
[2019-01-30 10:42] LABS: BASO % 0.9 % (0-2.0); EOS % 4.9 % (0-4.5); HEMATOCRIT 37.7 % (32.4-45.2); LYMPH % 36.9 % (8-40); MCH 30.4 pg (25.7-33.7); MCHC 34.4 g/dl (32.0-36.0); MEAN CELL VOLUME 88.3 fl (80-96); MEAN PLT VOLUME 8.8 fl (7.5-11.1); MONO % 6.7 % (3.8-10.2); NEUT % 50.6 % (42.8-82.8); PLATELET COUNT 234 K/MM3 (134-434); RBC 4.27 M/mm3 (3.60-5.2); RDW 13.1 % (11.6-15.6); WHITE BLOOD COUNT 5.8 K/mm3 (4.0-10.0)
--- NOTE | 2019-01-30 10:45 | PDOC ---
Documentation entered by Emmy Blas SCRIBE, acting as scribe for Donavan Mcgee MD. Donavan Mcgee MD: This documentation has been prepared by the Roopa payton Brenda, SCRIBE, under my direction and personally reviewed by me in its entirety. I confirm that the documentation accurately reflects all work, treatment, procedures, and medical decision making performed by me. History of Present Illness - General Chief Complaint: Chest Pain Stated Complaint: CHEST PAIN Time Seen by Provider: 01/30/19 09:59 History Source: Patient Exam Limitations: No Limitations - History of Present Illness Initial Comments: 01/30/19 10:14 The patient is a 38 year old female, with a significant PMH of Sarcoidosis, gastroparesis, cervical cancer and anxiety who presents to the emergency department with 2 days of chest pressure, which she describes as aching and squeezing. Patient notes that the chest pressure is aggravated by lying down. Patient also endorses L upper quadrant abdominal pain associated with nausea and a few episodes of vomiting. Patient reports taking her anxiety meds with no improvement in her chest pain. Patient also tried asthma inhaler to no relief. Patient notes this does not feel like her typical anxiety or gastroparesis. Pt is not on OCPs. No recent travel/immobilization. No leg swelling or calf pain. Allergies: sulfamethoxazole, tramadol HCl, trimethoprim Past surgical history: Left Knee surgery 2017, Hysterectomy 2009 Social history: Not reported Past History - Past Medical History Allergies/Adverse Reactions: Allergies Allergy/AdvReac Type Severity Reaction Status Date / Time sulfamethoxazole Allergy Swelling Verified 01/30/19 09:45 [From Bactrim] tramadol HCl [From Ultram] Allergy Difficulty Verified 01/30/19 09:45 Breathing trimethoprim [From Bactrim] Allergy Swelling Verified 01/30/19 09:45 Home Medications: Ambulatory Orders Buspirone HCl [Buspar -] 10 mg PO BID 07/12/18 Nitrofurantoin Monohyd/M-Cryst [Macrobid -] 100 mg PO BID #14 capsule 07/12/18 Valacyclovir HCl [Valtrex] 1,000 mg PO DAILY 5 Days #5 tablet 07/12/18 Anemia: Yes Asthma: Yes Cancer: Yes (CERVICAL CA) COPD: Yes (sarcoid) Diabetes: No HTN: No - Surgical History Abdominal Surgery: Yes (HYSTERECTOMY, sbo) GI Surgery: Yes (SBO) - Reproductive History Uterine Fibroids: Yes (hysterectomy) Oophorectomy: No - Immunization History Immunization Up to Date: Yes - Psycho Social/Smoking Cessation Hx Smoking Status: No Smoking History: Never smoked Have you smoked in the past 12 months: No Number of Cigarettes Smoked Daily: 0 Cigars Per Day: 0 Hx Alcohol Use: No Drug/Substance Use Hx: No Substance Use Type: None Hx Substance Use Treatment: No Review of Systems - Review of Systems Able to Perform ROS?: Yes Comments:: 01/30/19 10:14 GENERAL/CONSTITUTIONAL: No fever or chills. No weakness. HEAD, EYES, EARS, NOSE AND THROAT: No change in vision. No ear pain or discharge. No sore throat. CARDIOVASCULAR:(+) Chest pressure. No shortness of breath, no loss of consciousness RESPIRATORY: No cough, wheezing, or hemoptysis. GASTROINTESTINAL: + LUQ pain, + nausea, vomiting, no diarrhea or constipation. GENITOURINARY: No dysuria, frequency, or change in urination. MUSCULOSKELETAL: No joint or muscle swelling or pain. No neck or back pain. SKIN: No rash NEUROLOGIC: No vertigo, no change in strength/sensation. ENDOCRINE: No increased thirst. No abnormal weight change. HEMATOLOGIC/LYMPHATIC: No anemia, easy bleeding, or history of blood clots. ALLERGIC/IMMUNOLOGIC: No hives or skin allergy. *Physical Exam - Vital Signs Last Vital Signs Temp Pulse Resp BP Pulse Ox 98.5 F 71 16 172/107 H 100 01/30/19 09:45 01/30/19 09:45 01/30/19 09:45 01/30/19 09:45 01/30/19 09:45 - Physical Exam 01/30/19 10:15 GENERAL: Awake, alert, and fully oriented, in no acute distress. HEAD: No signs of trauma EYES: PERRLA, EOMI, sclera anicteric, conjunctiva clear ENT: Auricles normal inspection, hearing grossly normal, nares patent, oropharynx clear without exudates. Moist mucosa NECK: Nontender, no stepoffs, Normal ROM, supple, no lymphadenopathy, JVD, or masses LUNGS: Breath sounds equal, clear to auscultation bilaterally. No wheezes, and no crackles HEART: Regular rate and rhythm, normal S1 and S2, no murmurs, rubs or gallops ABDOMEN: + LUQ TTP, normoactive bowel sounds. No guarding, no rebound. No masses EXTREMITIES: Normal range of motion, no edema. No clubbing or cyanosis. No cords, erythema, or tenderness NEUROLOGICAL: Cranial nerves II through XII intact. 5/5 strength and sensation in all extremities, Normal speech, normal gait, normal cerebellar function SKIN: Warm, Dry, normal turgor, no rashes or lesions noted. ED Treatment Course - LABORATORY CBC & Chemistry Diagram: 01/30/19 10:30 01/30/19 10:30 Medical Decision Making - Medical Decision Making 01/30/19 10:48 38 F with chest pressure, LUQ pain, N+V. Suspect gastritis vs PUD vs gastroparesis. Pt with no EKG changes to suggest ACS. PERC score 0, making PE very unlikely. - Labs, trop - CXR - GI cocktail 01/30/19 12:15 Labs wnl CXR clear Pt reassessed - pain improved, nausea resolved Pt is well appearing, with normal vitals. Clinically stable for DC at this time. I discussed the physical exam findings, ancillary test results and final diagnoses with the patient. I answered all of the patient's questions. The patient was satisfied with the care received and felt comfortable with the discharge plan and treatment plan. The patient agrees to follow up with the primary care physician within 24-72 hours. Discharge - Discharge Information Problems reviewed: Yes Clinical Impression/Diagnosis: Chest tightness, Nausea and vomiting, Epigastric pain Disposition: HOME - Follow up/Referral - Patient Discharge Instructions Patient Printed Discharge Instructions: DI for Atypical Chest Pain Additional Instructions: Your bloodwork and X ray were normal today. However, this does not rule out all serious medical conditions. You must follow up with your primary doctor within 48 hours for further evaluation. If you experience worsening pain, shortness of breath, fevers, vomiting, or any other concerning symptoms, return to the ER immediately. You also need to have your blood pressure re-checked by your primary doctor, as it was slightly elevated today. Uncontrolled blood pressure can eventually lead to kidney disease, heart disease, other serious illness, disability, or even . - Post Discharge Activity
[2019-01-30 11:01] VITALS: BP 119/71
[2019-01-30 11:16] LABS: ALBUMIN 3.6 g/dl (3.4-5.0); ALK PHOS 81 U/L (45-117); ANION GAP 5 MMOL/L (8-16); BILIRUBIN,TOTAL 0.2 mg/dL (0.2-1); BLOOD UREA NITROGEN 10.9 mg/dL (7-18); CALCIUM 8.7 mg/dL (8.5-10.1); CHLORIDE 109 mmol/L (98-107); CO2 25 mmol/L (21-32); CREATININE 0.7 mg/dL (0.55-1.3); GLUCOSE,RANDOM 92 mg/dL (74-106); POTASSIUM 4.4 mmol/L (3.5-5.1); SGOT/AST 20 U/L (15-37); SGPT/ALT 30 U/L (13-61); SODIUM 139 mmol/L (136-145); TOT PROT 6.7 g/dl (6.4-8.2)
[2019-01-30 11:50] LABS: LIPASE 111 U/L (73-393)
[2019-01-30 11:55] LABS: EPI CELLS 9.8 /HPF (0-5/HPF); HYALINE CASTS 0 /lpf (0-8); PH,URINE 6.5 (5.0-8.0); URINE APPEARANCE CLOUDY; URINE BACTERIA 1978.5 /hpf (NEGATIVE); URINE BILIRUBIN NEGATIVE (NEGATIVE); URINE COLOR YELLOW; URINE GLUCOSE (UA) NEGATIVE (NEGATIVE); URINE KETONE NEGATIVE (NEGATIVE); URINE LEUK ESTERASE NEGATIVE (NEGATIVE); URINE NITRITE POSITIVE (NEGATIVE); URINE PROTEIN NEGATIVE (NEGATIVE); URINE UROBILINOGEN 0.2 mg/dL (0.2-1.0); URINE WBC 5 /hpf (0-5)
[2019-01-30 13:46] LABS: URINE RBC 6.7 /hpf (0-4)
--- NOTE | 2019-01-30 15:14 | EKG ---
Test Reason : Blood Pressure : / mmHG Vent. Rate : 070 BPM Atrial Rate : 070 BPM P-R Int : 140 ms QRS Dur : 132 ms QT Int : 408 ms P-R-T Axes : 066 052 021 degrees QTc Int : 440 ms NORMAL SINUS RHYTHM RIGHT BUNDLE BRANCH BLOCK ABNORMAL ECG WHEN COMPARED WITH ECG OF 15-OCT-2018 17:49, NO SIGNIFICANT CHANGE WAS FOUND Confirmed by KAYLAH SON MD ([id number]) on 01/30/2019 3:13:51 PM Referred By: Confirmed By:KAYLAH SON MD
== END 2019-01-30 12:26 | disposition home or self-care (01) ==
LOC: JER 09:36
PROC: 3E033GC Introduction of Other Therapeutic Substance into Peripheral Vein, Percutaneous Approach (ICD-10-PCS; principal; 2019-01-30)
PROC: 3E033NZ Introduction of Analgesics, Hypnotics, Sedatives into Peripheral Vein, Percutaneous Approach (ICD-10-PCS; 2019-01-30)
PROC: 3E033GC Introduction of Other Therapeutic Substance into Peripheral Vein, Percutaneous Approach (ICD-10-PCS; 2019-01-30)
DX: R07.89 Other chest pain (principal); F41.9 Anxiety disorder, unspecified; Z87.09 Personal history of other diseases of the respiratory system; D86.9 Sarcoidosis, unspecified; Z85.41 Personal history of malignant neoplasm of cervix uteri; Z90.710 Acquired absence of both cervix and uterus; Z88.2 Allergy status to sulfonamides
CPT/HCPCS: 36415; 71046-TC-FY; 80053; 81003; 82550; 83690; 83880; 84484; 84703; 85025; 93005; 93010; 99283-25; J0131

== ENCOUNTER 2024-04-20 21:51 | Emergency (ER) | payer OTHER ==
[2024-04-20 22:01] VITALS: BP 129/83; PULSE 74; RESP 20; TEMP 97.9; BMI 31.0
[2024-04-20] MEDS: IBUPROFEN 600 MG TABLET (FP) PO ONE (22:40)
[2024-04-20] MEDS ORDERED: IBUPROFEN 600 MG TABLET (FP) PO ONE (22:50)
[2024-04-20 23:22] LABS: BASO % 0.8 % (0-2.0); EOS % 2.9 % (0-4.5); HEMOGLOBIN 12.4 GM/dL (10.7-15.3); LYMPH % 34.1 % (8-40); MCH 29.1 pg (25.7-33.7); MCHC 32.8 g/dl (32.0-36.0); MEAN PLT VOLUME 7.9 fl (7.5-11.1); MONO % 6.4 % (3.8-10.2); NEUT % 55.8 % (42.8-82.8); PLATELET COUNT 302 10^3/uL (134-434); RBC 4.27 M/mm3 (3.60-5.2); RDW 12.7 % (11.6-15.6); WHITE BLOOD COUNT 9.9 K/mm3 (4.0-10.0)
[2024-04-21 00:16] LABS: POTASSIUM 3.8 mmol/L (3.5-5.1)
[2024-04-21 00:18] LABS: ALBUMIN 3.6 g/dl (3.4-5.0); MAGNESIUM 2.1 mg/dL (1.8-2.4)
[2024-04-21 00:21] LABS: CREATININE 0.7 mg/dL (0.55-1.3)
[2024-04-21 00:22] LABS: BILIRUBIN,TOTAL 0.4 mg/dL (0.2-1)
== END 2024-04-21 03:16 | disposition home or self-care (01) ==
LOC: JER 21:51
DX: U07.1 COVID-19 (principal); R07.89 Other chest pain; R11.0 Nausea; R06.02 Shortness of breath; R05.9 Cough, unspecified; M54.9 Dorsalgia, unspecified
CPT/HCPCS: 0241U-QW; 36415; 71046-TC-FY; 80053; 83735; 84484; 85025; 93005; 93010; 99285-25